=== PATIENT | female | born 1945 | race Caucasian/White ===

== ENCOUNTER 2018-09-07 09:46 | Outpatient (CLI) | payer MEDICARE, SELFPAY ==
[2018-09-07 11:14] LABS: HCT 43.5 % (36.0-46.0); HGB 13.9 g/dL (12.0-15.5); Mean Platelet Volume 10.9 fL (8.0-11.0); Platelet Count 214 x1000/uL (130-400); RBC 4.63 m/cumm (4.00-5.20); RBC Distribution Width 12.7 % (11.7-14.6); White Blood Cell Count 5.58 k/cumm (4.4-10.8)
[2018-09-07 11:36] LABS: ALT 25 U/L (12-78); AST 17 U/L (15-37); Albumin 3.6 g/dL (3.4-5.0); Alkaline Phosphatase 89 U/L (46-116); Anion Gap 6.7 mmol/L (3-11); BUN 13 mg/dL (7-18); Bilirubin, Total 0.6 mg/dL (0.2-1.0); CO2 30.3 mmol/L (21.0-32.0); CREATININE 0.71 mg/dL (0.55-1.02); Calcium 8.8 mg/dL (8.5-10.1); Chloride 104 mmol/L (98-107); Glucose 90 mg/dL (70-100); Potassium 3.9 mmol/L (3.5-5.1); Sodium 141 mmol/L (136-145); Total Protein 6.8 g/dL (6.4-8.2)
== END 2018-09-07 10:06 ==
PROVIDERS: PCP Family Medicine; Visit Provider Family Medicine
DX: R07.9 Chest pain, unspecified (principal)
CPT/HCPCS: 36415; 80053; 85027

== ENCOUNTER 2018-10-13 13:43 | Outpatient (CLI) | payer MEDICARE, SELFPAY ==
[2018-10-14 10:50] LABS: Lyme Ab w Rflx to Lyme Confirm Negative
== END 2018-10-13 14:03 ==
PROVIDERS: PCP Family Medicine; Visit Provider Family Medicine
DX: R53.83 Other fatigue (principal)
CPT/HCPCS: 36415; 86618